=== PATIENT | female | born 1980 | race Caucasian/White ===

== ENCOUNTER 2020-04-24 12:56 | Emergency (ER) | payer BC, SELFPAY ==
--- NOTE | ~2020-04-24 | XR_ITS ---
EXAMINATION: XR chest 1V portable DATE: 04/24/2020 14:19 INDICATION: Shortness of breath. TECHNIQUE: A single frontal view of the chest was obtained. COMPARISON: None. FINDINGS: The chest demonstrates clear lungs without pneumonia, pleural effusion, or pneumothorax. Th e heart size is normal. IMPRESSION: 1. No acute cardiopulmonary disease. Reviewed, dictated and finalized at location B. LINE REPAIRER
--- NOTE | 2020-04-24 13:11 | ECG_ITS ---
Measurements Intervals [place] Rate: 110 P: 48 [place]: 146 QRS: 17 QRSD: 84 T: 29 QT: 315 QTc: 426 Interpretive Statements SINUS TACHYCARDIA RSR' IN V1 OR V2, PROBABLY NORMAL VARIANT LOW QRS VOLTAGE IN PRECORDIAL LEADS ST-T WAVE ABNORMALITY IN ANTERIOR LEADS- CONSIDER ISCHEMIA BASELINE ARTIFACT- III ABNORMAL ECG Electronically Signed On 04-24-2020 17:06:52 BILL POSTER INSTALLER by Jerod Izaguirre D.O.
[2020-04-24 13:14] VITALS: BP 113/75; PULSE 102; RESP 16; TEMP 36.7; O2SAT 97
--- NOTE | 2020-04-24 13:20 | PC.NURSE ---
SL inserted. on air sampling and monitoring. alert. denies needs.
--- NOTE | 2020-04-24 13:22 | PC.NURSE ---
patient brought back to ED room 10 with c/o cough and recently (+) for Covid. see triage notes. no change in condition since triage completed. patient has been in ED waiting room due to no open beds in ED. alert. oriented. patient is [employer] at [employer] [facility] [employer]. assessments documented. denies needs right now.
[2020-04-24 13:32] LABS: Basophils Percent Auto 0.5 % (0.2-1.2); Eosinophils Absolute Auto 0.2 K/mm3 (0-0.3); Eosinophils Percent Auto 2.2 % (0-4.4); Hematocrit 39.5 % (37.0-47.0); Hemoglobin 13.6 g/dL (12.0-15.0); Immature Granulocyte Absolute 0.02 K/mm3 (0.00-0.031); Immature Granulocyte Percent A 0.3 % (0-0.5); Lymphocytes Absolute Auto 1.79 K/mm3 (0.9-3.2); Lymphocytes Percent Auto 24.2 % (18.3-44.2); Mean Corpuscular HGB Conc 34.4 g/dl (32-36); Mean Corpuscular Hemoglobin 33.3 pg (26-34); Mean Corpuscular Volume 96.6 fl (80-100); Monocytes Absolute Auto 0.7 K/mm3 (0.1-0.6); Monocytes Percent Auto 9.7 % (2.6-8.5); Neutrophils Absolute Auto 4.7 K/mm3 (1.3-6.7); Neutrophils Percent Auto 63.1 % (45.5-73.1); Platelet Count Result 345 k/mm3 (150-375); Red Blood Count 4.09 M/mm3 (4.2-5.4); Red Cell Distribution Width 12.2 % (11.5-14.5); White Blood Count 7.4 K/mm3 (4.5-10.0)
[2020-04-24 13:47] LABS: Alanine Aminotransferase 26 U/L (4-35); Albumin Level 4.6 g/dL (3.5-5.1); Alkaline Phosphatase 65 U/L (38-126); Anion Gap 9 mmol/L (8-16); Aspartate Amino Transferase 38 U/L (14-36); Bilirubin,Total 0.5 mg/dL (0.2-1.3); Blood Urea Nitrogen 6 mg/dL (7-17); Calcium 9.3 mg/dL (8.4-10.2); Carbon Dioxide 28 mmol/L (22-30); Chloride 102 mmol/L (98-107); Estimated CRCL calculation 99 ml/min; Estimated Glomerular Filt Rate > 60; Glucose 110 mg/dL (65-105); Potassium 3.9 mmol/L (3.4-5.0); Sodium 139 mmol/L (137-145)
[2020-04-24 13:58] LABS: Troponin I < 0.012 ng/mL (0.000-0.034)
[2020-04-24 14:06] LABS: D Dimer 0.24 ug/mL (<0.48)
--- NOTE | 2020-04-24 14:44 | ED.URI ---
HPI - URI/Sore Throat General Chief Complaint: Upper Respiratory Infection Stated Complaint: COVID +, chest tightness, SOB Time Seen by Provider: 04/24/20 13:17 History of Present Illness HPI Narrative: Patient is a 40-year-old female who presents the emergency department with chief complaint of cough and shortness of breath. Patient reports she was recently diagnosed with COVID-19 states she was starting to get a little bit better but then started having worsening cough and had some tightness in her chest. The patient states that she is used her inhaler multiple times and is using it approximately every 2 hours and states that she still feels as though she is short of breath. Patient states that her fevers have stopped at this point states that her cough has not been productive. Related Data Allergies Allergy/AdvReac Type Severity Reaction Status Date / Time erythromycin base Allergy VOMITING Verified 01/31/13 12:11 Review of Systems Review of Systems: Narrative: CONSTITUTIONAL: Denies fever, chills, or sweats. EYES: Denies visual changes, redness, or discharge. ENT: Denies rhinorrhea, congestion, sore throat, or otalgia. CARDIOVASCULAR: Denies chest pain, palpitations, or edema. RESPIRATORY: Denies cough or dyspnea. GASTROINTESTINAL: Denies abdominal pain, nausea, vomiting, or diarrhea. GENITOURINARY: Denies dysuria or hematuria. SKIN: Denies rash or itching. MUSCULOSKELETAL: Denies back pain, joint pain, or myalgia. NEUROLOGIC: Denies headache, numbness, or weakness. PSYCHIATRIC: Denies anxiety or depression. All systems reviewed & are unremarkable except as noted in HPI and below PMFSH Comments Past medical history significant for COVID-19 Social history the patient reports that she intermittently smokes cigars Exam Narrative: Exam Narrative: GENERAL: Well-appearing, well-nourished, and in no acute distress. HEAD: Normocephalic, atraumatic. EYES: PERRLA and EOMI. ENT: Nares clear, no rhinorrhea or epistaxis. Mucous membranes moist. NECK: Supple. CHEST: Clear to auscultation. No respiratory distress. HEART: Regular rate and rhythm. No murmur heard. Normal peripheral pulses. ABDOMEN: Soft, nontender, nondistended, normal active bowel sounds. EXTREMITIES: Normal range of motion. No edema. SKIN: Warm, dry, no rash. NEURO: No focal deficits. Alert and oriented x3. PSYCH: Normal mood and affect. Course Course Emergency Course: Patient's laboratory studies showed a normal D-dimer normal troponin EKG showed no evidence of ST elevation. Chest x-ray shows no evidence of infiltrate. Vital Signs Vital signs: Vital Signs Temperature 36.7 C 04/24/20 13:14 Pulse Rate 102 H 04/24/20 13:14 Respiratory Rate 16 04/24/20 13:14 Blood Pressure 113/75 04/24/20 13:14 Pulse Oximetry 97 04/24/20 13:14 Temperature 36.7 C 04/24/20 13:14 Pulse Rate 102 H 04/24/20 13:14 Respiratory Rate 16 04/24/20 13:14 Blood Pressure 113/75 04/24/20 13:14 Pulse Oximetry 97 04/24/20 13:14 MDM - URI/Sore Throat Lab Data Result diagrams: 04/24/20 13:24 04/24/20 13:24 Labs: Lab Results 04/24/20 04/24/20 04/24/20 Range/Units 13:24 13:24 13:24 WBC 7.4 (4.5-10.0) K/mm3 RBC 4.09 L (4.2-5.4) M/mm3 Hgb 13.6 (12.0-15.0) g/dL Hct 39.5 (37.0-47.0) % MCV 96.6 (80-100) fl MCH 33.3 (26-34) pg MCHC 34.4 (32-36) g/dl RDW 12.2 (11.5-14.5) % Plt Count 345 (150-375) k/mm3 MPV 10.0 (7.4-10.4) fl Immature Gran % (Auto) 0.3 (0-0.5) % Neut % (Auto) 63.1 (45.5-73.1) % Lymph % (Auto) 24.2 (18.3-44.2) % Bremer % (Auto) 9.7 H (2.6-8.5) % Eos % (Auto) 2.2 (0-4.4) % Baso % (Auto) 0.5 (0.2-1.2) % Lymph # (Auto) 1.79 (0.9-3.2) K/mm3 Bremer # (Auto) 0.7 H (0.1-0.6) K/mm3 Eos # (Auto) 0.2 (0-0.3) K/mm3 Baso # (Auto) 0.0 (0.0-0.1) K/mm3 Abs Immat Gran (auto) 0.02 (0.00-0.031) K/mm3 Absolute Neuts (auto) 4.7
== END 2020-04-24 15:10 | disposition home or self-care (01) ==
PROVIDERS: Emergency Medicine; Emergency Provider Emergency Medicine; PCP Family Medicine
DX: U07.1 COVID-19 (principal)
CPT/HCPCS: 36415; 71045; 80053; 84484; 85025; 85380; 93005; 99284

== ENCOUNTER → 2021-09-29 15:52 | Outpatient (CLI) | payer BC, SELFPAY ==
--- NOTE | ~2021-09-29 | MM_ITS ---
EXAMINATION: MM screening [facility] BI w lyly HISTORY: Screening mammogram TECHNIQUE: Craniocaudal and mediolateral oblique 3-D tomosynthesis images were obtained and synthetic 2-D images were generated. CAD analysis was submitted and interpreted. COMPARISON: 06/08/2006 bilateral diagnostic mammogram BREAST PARENCHYMAL COMPOSITION: There are scattered areas of fibroglandular density. FINDINGS: There is architectural distortion in the anterior lower inner quadrant of the right breast. There is a history of right breast biopsy 10 years ago. Diagnostic right mammogram and right breast ultrasound examination are recommended if there is no more recent postbiopsy mammogram for comparison . Otherwise no suspicious mass, architectural distortion, malignant calcification, skin thickening or r etraction of either breast is evident. IMPRESSION: Architectural distortion in the anterior lower inner right breast If no more recent postbiopsy mammograms are available, diagnostic right mammogram and right breast ul trasound examination are recommended BI-RADS Category 0: Incomplete: Needs additional imaging evaluation. Reviewed, dictated and finalized at location A. IMPRESSION: Architectural distortion in the anterior lower inner right breast If no more recent postbiopsy mammograms are available, diagnostic right mammogr am and right breast ultrasound examination are recommended BI-RADS Category 0: Incomplete: Needs additional imaging evaluation.
== END ==
PROVIDERS: Visit Provider Nurse Practitioner Obstetrics & Gynecology
DX: Z12.31 Encounter for screening mammogram for malignant neoplasm of breast (principal); R92.8 Other abnormal and inconclusive findings on diagnostic imaging of breast
CPT/HCPCS: 77063; 77067

== ENCOUNTER → 2021-10-15 09:46 | Outpatient (CLI) | payer BC, SELFPAY ==
--- NOTE | ~2021-10-15 | MMUS_ITS ---
EXAMINATION: MM diagnostic [facility] RT w lyly, US breast RT complete HISTORY: Architectural distortion reported in anterior lower inner right breast on September 29, 2021 scr eening mammogram examination. History of right breast biopsy 10 years ago. TECHNIQUE: Additional 3-D tomosynthesis images of the right breast were performed and synthetic 2-D i mages were generated. CAD analysis was submitted and interpreted. High resolution complete right [facility] st ultrasound including all 4 quadrants and subareolar area was performed. COMPARISON: 09/29/2021 bilateral screening mammogram FINDINGS: MAMMOGRAPHIC FINDINGS: Approximately 4.5 x 6.5 mm circumscribed opacity with suggestion of fatty hilus, likely a benign intr amammary lymph node, in the posterior outer mid right breast (compression craniocaudal Tomosynthesis image /62; MLO Tomosynthesis image /). 4.8 x 7.4 mm circumscribed opacity is noted at mid depth in the lower outer right breast (compression craniocaudal Tomosynthesis image /62; ML Tomosynthesis image /70). ULTRASOUND: 8:00 6 cm from nipple: Approximately 4 x 8.7 mm benign-appearing lymph node 11:00 4 cm from nipple: 3 x 4 x 4.7 mm oval circumscribed hypoechoic lesion without internal vascular ity or posterior shadowing No suspicious mass or shadowing is detected IMPRESSION: 1. No mammographic evidence of malignancy 2. Routine annual mammographic screening is recommended BI-RADS Category 2: Benign finding(s). Reviewed, dictated and finalized at location A. IMPRESSION: 1. No mammographic evidence of malignancy 2. Routine annual mammographic screening is recommended BI-RADS Category 2: Benign finding(s).
== END ==
PROVIDERS: PCP Family Medicine; Visit Provider Nurse Practitioner Obstetrics & Gynecology
DX: R92.8 Other abnormal and inconclusive findings on diagnostic imaging of breast (principal); N63.11 Unspecified lump in the right breast, upper outer quadrant
CPT/HCPCS: 76641; 77061; 77065; G0279

== ENCOUNTER 2024-10-18 13:09 | Outpatient (CLI) | payer BC, SELFPAY ==
--- NOTE | ~2024-10-18 | MM_ITS ---
EXAMINATION: MM screening [facility] BI w lyly HISTORY: Screening TECHNIQUE: Craniocaudal and mediolateral oblique 3-D tomosynthesis images were obtained and synthetic 2-D images were generated. CAD analysis was submitted and interpreted. COMPARISON: Comparison to multiple prior studies sequentially, with oldest reviewed study dated 09/29. BREAST PARENCHYMAL COMPOSITION: Not dense: There are scattered areas of fibroglandular density. FINDINGS: There is no evidence of suspicious mass, calcification, or architectural distortion to sugg est malignancy in either breast. There has been no suspicious interval change. IMPRESSION: 1. No mammographic evidence of malignancy. 2. Recommend routine screening mammography in one year. BI-RADS Category 1: Negative Reviewed, dictated and finalized at location A.
== END 2024-10-18 13:10 | disposition home or self-care (01) ==
LOC: MICIMG 13:09
PROVIDERS: PCP Family Medicine; Visit Provider Student in an Organized Health Care Education/Training Program
DX: Z12.31 Encounter for screening mammogram for malignant neoplasm of breast (principal)
CPT/HCPCS: 77063; 77067

== ENCOUNTER 2025-04-26 11:02 | Outpatient (CLI) | payer BC, SELFPAY ==
--- NOTE | ~2025-04-26 | US_ITS ---
EXAMINATION: US pelvic complete, 04/26/2025 11:06 FRONT COUNTER ATTENDANT HISTORY: IRREGULAR BLEEDING Comparison: None Technique: Caceres-scale and color Doppler images were obtained. Findings: Uterus: Uterus anteverted 11.6 x 4.8 x 7.1 m. Right ovary 5.5 x 3.2 x 3.6 cm, simple appearing probable dominant follicle 2.7 x 2.5 x 2.4 cm, no adnexal mass, normal flow. . Endometrium 5 mm, IUD is identified, the IVC is not well demonstrated but appears in appropriate location in the uterine cavity Right Ovary:Unremarkable. No adnexal mass. Normal flow. Left Ovary: Left ovary 2.5 x 2.2 x 3.3 cm, no adnexal mass, normal flow. Free Fluid: None Impression: No acute abnormality. Reviewed, dictated and finalized at location P. T COUNTER ATTENDANT Impression: No acute abnormality.
== END 2025-04-26 11:03 | disposition home or self-care (01) ==
PROVIDERS: PCP Family Medicine; Visit Provider Student in an Organized Health Care Education/Training Program
DX: N92.6 Irregular menstruation, unspecified (principal); Z97.5 Presence of (intrauterine) contraceptive device
CPT/HCPCS: 76856